=== PATIENT | male | born 1980 | race Caucasian/White ===

== ENCOUNTER 2016-12-29 17:23 | Emergency (ER) | payer MEDICARE, OTHER ==
[2016-12-29 17:31] VITALS: BP 128/81
[2016-12-29] MEDS ORDERED: DIPHTH,PERTUSS(ACELL),TET VAC 0.5 ML VIAL IM ONE ×2 (17:40→17:57)
--- NOTE | 2016-12-29 17:43 | ERNOTE ---
Lower Extremity HPI - General Lower Extremities Pain: foot: right Time Seen by Provider: 12/29/16 17:37 Source: patient Exam Limitations: no limitations - Immun/Allergies/Home Medications Allergies/Adverse Reactions: Allergies Allergy/AdvReac Type Severity Reaction Status Date / Time No Known Allergies Allergy Verified 12/29/16 17:31 Home Medications: HOME MEDICATIONS Ciprofloxacin HCl [Cipro] 500 mg PO BID #14 tab 12/29/16 [Last Taken Unknown] - History of Present Illness Narrative: Patient stepped on a nail at home and the nail went although the shoe and into the foot. He presents with a dull ache in the bottom of the right foot with a bleeding wound in the incident happened just prior to coming to the ED Occurred: just prior to arrival Location of Incident: home Method of Injury: Reports: other - as noted Loss of Consciousness: Reports: no loss of consciousness Associated Symptoms: Reports: other injuries - bottom the right foot hurts somewhat with weightbearing Other Injuries: Reports: none Review of Systems - Review of Systems Constitutional: Present: See HPI EYE: Present: no symptoms reported ENT: Present: no symptoms reported Respiratory: Present: no symptoms reported Cardiology: Present: no symptoms reported Gastrointestinal/Abdominal: Present: no symptoms reported Genitourinary: Present: no symptoms reported Musculoskeletal: Present: See HPI Skin: Present: no symptoms reported Neurological: Present: no symptoms reported Endocrine: Present: no symptoms reported Hematologic/Lymphatic: Present: no symptoms reported Psych: Present: no symptoms reported - Patient's Past Medical History Patient History - Medical: Hypothyroidism Patient History - Cardiac/Respiratory: No pertinent hx Patient History - Cancer: No Hx of Cancer Patient History - Surgical Procedures: No surgical history Patient History - Other: None - Social History Living Situations: home Psych History: No pertinent hx Smoking Status: Current every day smoker Do you dip or chew tobacco: Yes Alcohol Use: none Drug Use: none Physical Exam - Physical Exam General Appearance: Present: wd/wn, alert, mild distress Head Exam: Present: normal inspection Eye Exam: Normal inspection: bilateral, PERRL: bilateral Ears, Nose, Throat: Present: normal ENT inspection, H, normal pharynx Neck: Present: normal inspection, nontender Respiratory: Present: no respiratory distress, normal breath sounds, no accessory muscle use, chest nontender, lungs clear Cardiovascular/Chest: Present: regular rate, rhythm, no murmur, normal peripheral pulses Gastrointestinal/Abdominal: Present: normal bowel sounds, nontender, nondistended, soft, no organomegaly Rectal Exam: Present: deferred Back Exam: Present: normal inspection, normal range of motion Extremity Exam: Present: non-tender, normal range of motion, no edema, other - small puncture wound in the bottom of the right foot with minimal bleeding Neurological Exam: Present: alert, oriented, normal mood/affect Skin Exam: Present: normal color, warm/dry Lymphatic Exam: Present: no adenopathy ED Progress - Vital Signs Patient's Vital Signs:: I have reviewed the patient's vital signs. Vital Signs: Vital Signs 12/29/16 17:26 Temperature 36.8 C Pulse Rate 121 H Respiratory 12 Rate Blood Pressure 128/81 O2 Sat by Pulse 97 Oximetry - X-Ray X-Ray #1 X-Ray: foot Interpretation: Reviewed by me - Progress/Reassessment Chief Complaint: Foot Injury/Pain Plan - Plan Plan: We have to consider the risk of possible pseudomonas infection as a nail went through a tennis shoe and punctured the bottom of the foot. Patient will be started on Cipro and he will soak the foot at home. He will follow-up with his family physician as needed Departure Clinical Impression: Puncture wound - Departure Disposition: Home self-care Condition: Good Instructions: Puncture Wound, [id number] Additional Instructions: See your family doctor as needed Prescriptions: Ciprofloxacin HCl [Cipro] 500 mg PO BID #14 tab
== END 2016-12-29 18:29 | disposition home or self-care (01) ==
LOC: ER 17:23
DX: S91.331A Puncture wound without foreign body, right foot, initial encounter (principal); W45.0XXA Nail entering through skin, initial encounter; F17.200 Nicotine dependence, unspecified, uncomplicated; Y92.009 Unspecified place in unspecified non-institutional (private) residence as the place of occurrence of the external cause; Z23 Encounter for immunization